=== PATIENT | male | born 1990 | race Hispanic/Latino ===

== ENCOUNTER 2018-05-29 06:35 | Emergency (ER) | payer MEDICAID, OTHER ==
[2018-05-29] MEDS ORDERED: SODIUM CHLORIDE 0.9% 1000ML 1,000 ML IV ONE (07:26)
[2018-05-29] MEDS ORDERED: ONDANSETRON HCL 4 MG/2 ML VIAL ONE (07:26)
[2018-05-29 08:02] LABS: CREATININE 1.2 mg/dL (0.5-1.5); POTASSIUM 3.5 mmol/L (3.5-5.1)
== END 2018-05-29 08:39 | disposition home or self-care (01) ==
LOC: EDH 06:35
DX: F10.129 Alcohol abuse with intoxication, unspecified (principal); E16.2 Hypoglycemia, unspecified; R55 Syncope and collapse
CPT/HCPCS: 36415; 80048; 82948; 96361; 96374; 99284; G0480; J2405; J7030

== ENCOUNTER 2019-09-04 18:14 | Emergency (ER) | payer OTHER ==
[2019-09-04] MEDS ORDERED: KETOROLAC TROMETHAMINE 60 MG/2 ML VIAL ONE (18:34)
[2019-09-04] MEDS ORDERED: LIDOCAINE 5% TOPICAL PATCH TP ONE (18:35)
== END 2019-09-04 19:21 | disposition home or self-care (01) ==
LOC: EDH 18:14
DX: S33.5XXA Sprain of ligaments of lumbar spine, initial encounter (principal); Z72.0 Tobacco use; X50.0XXA Overexertion from strenuous movement or load, initial encounter; Y93.89 Activity, other specified; Y92.89 Other specified places as the place of occurrence of the external cause; Y99.8 Other external cause status
CPT/HCPCS: 96372; 99283; J1885